=== PATIENT | female | born 1965 | race Caucasian/White ===

== ENCOUNTER 2019-07-13 09:41 | Emergency (ER) | payer OTHER ==
[~2019-07-13] VITALS: Ht 160 cm; Wt 94.3 kg
[2019-07-13 09:45] VITALS: BP 123/59
--- NOTE | 2019-07-13 09:52 | NUR ---
Patient ambulated to bed 8 with family. RN evaluating patient at bedside.
[2019-07-13] MEDS ORDERED: ALBUTEROL SULFATE/IPRATROPIU 3 ML SOL IH ONE (09:55)
[2019-07-13] MEDS ORDERED: predniSONE 20 MG TAB PO ONE (09:55)
[2019-07-13] MEDS ORDERED: ALBUTEROL 0.083% 2.5 MG/3 ML NEBU INH ONE (09:55)
--- NOTE | 2019-07-13 09:55 | NUR ---
FLU SWAB COLLECTED
--- NOTE | 2019-07-13 09:56 | NUR ---
injection mold tooling technician at bedside for CXR.
--- NOTE | 2019-07-13 10:04 | NUR ---
Breathing treatment administered by respiratory therapist at bedside.
--- NOTE | 2019-07-13 10:13 | NUR ---
RESPIRATORY IN WITH PATIENT ADMINISTERING BREATHING TX.
--- NOTE | 2019-07-13 10:19 | NUR ---
54 Y/F AMBULATORY PRESENTS TO ED WITH COMPLAINT OF SOB X 2 DAY, ALONG WITH PRODUCTIVE COUGH, FITCH, FEVER ( UNABLE TO REPORT TEMP), CHILLS, AND NASUEA. REPORTS FAMILY AT HOME HAS BEEN DIAGNOSED WITH THE FLU. PT A&O, NO DISTRESS NOTED. SYMETRICAL LUNG EXPANSION, WHEEZES AUSCULTATED THROUGHOUT. HX- COPD, OSTEOPENIA, AND VERTEBRAL DISORDER ALLERGIES- SILVER & IODINE RX- BACLOFEN, NAPROSYN, ALENDRONATE AND ANXIETY RX
[2019-07-13] MEDS ORDERED: ONDANSETRON 4 MG ODT PO ONE (10:25)
--- NOTE | 2019-07-13 10:25 | NUR ---
PER PT COMPLAINT OF NAUSEA, DR. WHITTEN MADE AWARE AND ORDERS OF ZOFRAN TO BE PUT IN.
--- NOTE | 2019-07-13 10:55 | NUR ---
Dr. Jernigan is evaluating the patient at bedside.
--- NOTE | 2019-07-13 11:00 | NUR ---
NADR, REPORTS RELIEF FROM NAUSEA MEDICATION, DENIES PAIN
[2019-07-13 11:16] VITALS: BP 123/59
== END 2019-07-13 11:17 | disposition home or self-care (01) ==
LOC: MED 09:41
DX: R50.9 Fever, unspecified (principal); M79.10 Myalgia, unspecified site; R05 Cough; J44.9 Chronic obstructive pulmonary disease, unspecified; Z91.09 Other allergy status, other than to drugs and biological substances
CPT/HCPCS: 71045; 81002; 94640; 99283; J7512; J7613; J7620; Q0092; Q0162

== ENCOUNTER 2021-06-01 11:37 | Emergency (ER) | payer OTHER ==
[~2021-06-01] VITALS: Ht 156.2 cm; Wt 98.0 kg
[2021-06-01 11:38] VITALS: BP 150/98
--- NOTE | 2021-06-01 13:50 | NUR ---
pt wheelchair back to lobby from xray
--- NOTE | 2021-06-01 13:53 | NUR ---
labs being drawn in [facility] at this time
[2021-06-01 14:13] LABS: BASOPHILS # (AUTO) 0.1 K/uL (0.00-0.22); BASOPHILS % (AUTO) 1.1 % (0.0-2.0); EOSINOPHILS # (AUTO) 0.1 K/uL (0-0.4); EOSINOPHILS % (AUTO) 2.1 % (0.0-4.0); HEMATOCRIT 45.1 % (36-48); HEMOGLOBIN 15.2 g/dL (12.0-16.0); LYMPHOCYTES # (AUTO) 1.6 K/uL (2.5-16.5); LYMPHOCYTES % (AUTO) 28.3 % (20.5-51.1); MEAN CORPUSCULAR HEMOGLOBIN 29 pg (27-31); MEAN CORPUSCULAR HGB CONC 34 g/dL (33-37); MEAN CORPUSCULAR VOLUME 87.2 fL (80-94); MONOCYTES # (AUTO) 0.4 K/uL (0.8-1.0); MONOCYTES % (AUTO) 7.1 % (1.7-9.3); NEUTROPHILS # (AUTO) 3.5 K/uL (1.8-7.7); NEUTROPHILS % (AUTO) 61.4 % (42.2-75.2); PLATELET COUNT (AUTO) 251 K/uL (140-450); RED BLOOD CELL COUNT(AUTO) 5.17 MIL/uL (4.20-5.40); RED CELL DISTRIBUTION WIDTH 14.4 % (11.6-13.7); WHITE BLOOD COUNT (AUTO) 5.7 K/uL (4.8-10.8)
[2021-06-01 14:47] LABS: ALBUMIN 3.6 g/dL (3.4-5.0); ANION GAP 10.5 (8-16); CARBON DIOXIDE 30.3 mmol/L (21-32); CREATININE 0.9 mg/dL (0.6-1.3); POTASSIUM 4.8 mmol/L (3.5-5.1); TOTAL BILIRUBIN 0.3 mg/dL (0.0-1.0)
[2021-06-01] MEDS ORDERED: ALBUTEROL SULFATE/IPRATROPIU 3 ML SOL IH ONE (16:05)
[2021-06-01] MEDS ORDERED: predniSONE 20 MG TAB PO ONE (16:05)
[2021-06-01] MEDS ORDERED: LEVO750T51 PO (16:32)
[2021-06-01] MEDS ORDERED: PRED20TA5 PO (16:32)
--- NOTE | 2021-06-01 16:38 | NUR ---
PT DISCHARGED BY MICHAELLE MARTINEZ.
== END 2021-06-01 16:38 | disposition home or self-care (01) ==
LOC: MED 11:37
DX: J44.1 Chronic obstructive pulmonary disease with (acute) exacerbation (principal); J18.9 Pneumonia, unspecified organism; F17.200 Nicotine dependence, unspecified, uncomplicated; Z88.8 Allergy status to other drugs, medicaments and biological substances; Z79.899 Other long term (current) drug therapy
CPT/HCPCS: 36415; 71045; 80053; 84484; 85025; 93005; 94640; 99285